=== PATIENT | female | born 1985 | race Caucasian/White ===

== ENCOUNTER 2022-08-09 08:17 | Day surgery (SDC) | payer BC ==
[2022-08-03 14:45] LABS: Specific Gravity 1.013 (1.005-1.030); Urine Bilirubin NEGATIVE (Negative); Urine Blood Negative (Negative); Urine Clarity Clear (Clear); Urine Color Light-Yellow (Yellow); Urine Glucose NEGATIVE (Negative); Urine Protein NEGATIVE (Negative); Urine Urobilinogen Normal (Normal)
[2022-08-08 08:10] LABS: Absolute Lymphocytes (CBC) 2.2 K/uL (0.7-4.9); Hematocrit 33.7 % (36.0-45.0); Lymphocytes % 31.4 % (15.3-44.8); MCV 90.9 fL (80-100); MPV 7.1 fL (7.6-11.3); RBC Red Blood Cell Count 3.71 M/uL (3.86-4.86)
[2022-08-09] MEDS ORDERED: Ringers Lactate 1,000 ML IV ONE ×4 (09:18→16:21)
[2022-08-09] MEDS ORDERED: SCOPOLAMINE HYDROBROMIDE PATCH TD ONE (09:18)
[2022-08-09] MEDS ORDERED: MIDAZOLAM HCL 2 MG/2 ML INJ ONE (09:27)
[2022-08-09] MEDS ORDERED: FENTANYL CITR 100 MCG/2 ML ONE ×3 (09:28→13:30)
[2022-08-09] MEDS ORDERED: ROCURONIUM 50 MG/5 ML VIAL IV ONE (09:28)
[2022-08-09] MEDS ORDERED: LIDOCAINE 2% MPF 5 ML VIAL ONE (09:28)
[2022-08-09] MEDS ORDERED: propofoL 200 MG/20 ML VIAL IV ONE (09:28)
[2022-08-09] MEDS: CEFAZOLIN SODIUM 2 GM/VIAL ONE ×2 (09:54→10:35)
[2022-08-09] MEDS: BUPIVACAINE 0.25% PF 30 ML VIAL ONE ×2 (09:55→10:50)
[2022-08-09] MEDS ORDERED: KETAMINE HCL 500 MG/5 ML VIAL ONE (09:56)
[2022-08-09] MEDS ORDERED: NS 0.9% VIAL 20 ML ONE (09:56)
[2022-08-09] MEDS ORDERED: dexAMETHasone 10 MG/ML VIAL ONE (09:56)
[2022-08-09] MEDS ORDERED: ONDANSETRON 4 MG/2 ML VIAL ONE ×2 (10:00→14:21)
[2022-08-09] MEDS ORDERED: GLYCOPYRROLATE 0.2 MG/ML SYR ONE (11:33)
[2022-08-09] MEDS ORDERED: KETOROLAC 30 MG/ML INJ ONE (12:56)
[2022-08-09 13:52] VITALS: O2SAT 100
[2022-08-09] MEDS ORDERED: HYDROCODONE/APAP 5/325 MG TAB PO PRN (14:12)
[2022-08-09] MEDS ORDERED: MEPERIDINE HCL 25 MG/ML SYR IM PRN (14:12)
[2022-08-09] MEDS ORDERED: PROMETHAZINE INJ 25 MG/ML AMP IV PRN (14:12)
--- NOTE | 2022-08-09 14:18 | P.BOP ---
Preoperative diagnosis: AUB-A/E, Dysmenorrhea, Dyspareunia Postoperative diagnosis: same, endometriosis, bladder ometal adhesions Primary procedure: TLH BS Endometriosis excision and fulgration, cystoscopy Harness Puller: Zamzam Honeycutt Estimated blood loss: 50 Specimen: uterus tubes endometriosis Findings: omental adhesions-ant abd wall,dense bladder adhesions-lower uterus,ant vg Anesthesia: General Complications: None Fluids & blood products: UO 300, LR 1600 Transferred to: Recovery Room Condition: Good
[2022-08-09] MEDS ORDERED: HYDROCODONE/APAP 5/325 MG TAB ONE (15:06)
[2022-08-09 16:11] VITALS: BP 112/68; TEMP 96.9
--- NOTE | 2022-08-09 19:53 | OP ---
Date of Procedure: 08/09/2022 Surgeon: Christin Parrish MD [employer] Operator: Zamzam De La Rosa. Preoperative Diagnoses: 1.Menorrhagia (AUB-A/P). 2.Dysmenorrhea. 3.Dyspareunia. Postoperative Diagnoses: 1.Menorrhagia (AUB-A/P). 2.Dysmenorrhea. 3.Dyspareunia. 4.Endometriosis. 5.Bladder and omental adhesions from her 3 sections. Procedures Performed: Total laparoscopic hysterectomy, bilateral salpingectomy, endometriosis, excis ion and fulguration, lysis of omental adhesions, and bladder adhesions that took at least 50% of the case. Cystoscopy. Estimated Blood Loss: 50. Specimens: Uterus, tubes, endometriosis. Findings: Omental adhesions to the anterior abdominal wall. Dense bladder adhesions to the lower ut erus and anterior vaginal wall. All these were removed with sharp and blunt dissection as well as ca uterization with bipolar and cutting. On cystoscopy at the end of the procedure, there was jets of urine from both ureteric orifices. The right was slightly slower than the left, but it was good jet of urine. Both ovaries were retained and appeared to be completely unremarkable. The location of endometriosis, 1 implant, and the posterior cul-de-sac right pararectal space. Just on the superficial peritoneum overlying was completely fulgurated on the right posterior broad ligame nt, lateral to the ureter, and anterior. This was also picked up and fulgurated at the end. The End ometriotic implants in the left posterior peritoneum of the broad ligament overlying the uterosacral ligament as well as distal ureter were excised after being from the ureter in the distal pa rt of the pelvis. The bladder adhesions were taken down well and closure was performed with the help of interrupted 0 V icryl sutures x5. Indications: The patient is a 37-year-old female with 3 prior C-sections, tubal ligation as well. S he was evaluated for pain as well as bleeding. No evidence of any atypia or malignancy. No adnexal masses were noted. Discussed all the benefits and risks of the procedure and proceeded with the hyst erectomy today. She was re-consented in the preoperative area, taken back to the OR, placed in supin e fashion on the operating table. After Ancef 2 g were given, general anesthesia was given and she w as placed in a dorsal lithotomy position. Abdomen, vulva, vagina, and perineum were prepped and drap ed in a sterile fashion. Christian was placed to drain the bladder and a medium VCare was introduced int o the place for uterine manipulation and fix. The Christian was attached for retrograde filling to an LR bag emptied 300. A 1 cm supraumbilical incision made with a scalpel using the open laparoscopy technique. Fascia was tagged with 0 Vicryl sutures and peritoneum entered sharply. S-retractors were placed. Jarvis intro duced. After adequate insufflation, site of entry was checked and was unremarkable. The upper abdom inal surfaces, gallbladder unremarkable. The gastric sleeve was visible. Some scar here to the ante rior abdominal wall of the omentum as well as the stomach. The appendix appeared to be unremarkable. There were adhesions of the omentum to the anterior abdominal wall starting at the infraumbilical s car and going down all the way to her scars. There appeared to be a defect in the anterior abdominal wall, where the scar was, where there could be a ventral hernia that was fairly s mall, about 4 cm, but otherwise, no other abnormalities were noted. 5 left lower quadrant ports were placed under direct vision, a 5 right as well, and after taking down the omental adhesions carefully with the help of sharp dissection as well as blunt and taking down them and windows using the LigaSu re, the anterior abdominal wall was inspected. Hemostasis was secured and then the 10 port in the mota prapubic area was placed through the same area. The patient was placed in Trendelenburg. Then I evaluated the pelvic cavity, the bladder adhesions i n the suprapubic area were taken down and then going down to the area between the bladder and the unga monet. The adhesions were taken down sharply first coming down to the anterior vaginal wall here. Att ention was then directed to the left adnexa. The bowel adhesions to the left adnexa were taken down sharply. Then, once the bowel was dropped down, the tube was picked up. Salpingectomy was performed with the LigaSure. Then, window was created for the round ligament both superiorly and inferiorly. Then, this was cauterized and cut with the help of the LigaSure. Utero-ovarian ligament was also ta gianluca down and anteriorly the bladder was dissected on the anterior vaginal wall in the left paravesica l space. The vessels were visualized here, there was endometriosis in the posterior peritoneum, so t his was carefully dissected opening up the peritoneum between the ureter and the implants dissecting the ureter laterally, after identifying the uterine artery. Then the implants were carefully dissect ed away from the ureter to the medial aspect and this was taken down all the way to the uterosacral, creating space between the ureter and the uterosacral. Then the vessels were isolated. However, the bladder was still well adhered, so the space between the anterior vaginal wall and the bladder was d issected, created, and then a bipolar as well as sharp dissection was performed to separate the bladd er from the lower uterine wall as well as the anterior vaginal wall. Once this was done, then the re st of the broad ligament was skeletonized all the way to the cup on the opposite side. Tube was take n down utero-ovarian ligament and round ligament. Then anteriorly, the peritoneum was opened up to c onnect the bladder flap. However, there were dense bladder adhesions to the right lateral part of th e lower uterine segment. The scar was taken down with sharp dissection. Then, there was still furth er scar on the anterior vaginal wall, which had to be taken down carefully with the bipolar LigaSure, carefully not going towards the bladder pillar, where there could be the ureterovesical junction. T hen, once the vessels were isolated anteriorly, the peritoneum taken down posteriorly, all the way to the uterosacral, and the vessels were taken down close to the uterus and then cut. The cardinal lig aments were taken down as well and then on the opposite side, uterine vessels were taken down. The b ladder was connected in the anterior vaginal wall. The bladder was dissected to completely retract i t beyond the cuff and posteriorly the peritoneum all incised on the cup. Then, the cardinal ligament s on the left side were taken and circumferential colpotomy with a monopolar hook blade, and the spec imen pulled up through the vagina. Hemostasis was secured on both ends of the cuff at 9 and 3 o'cloc k positions with the help of a fine tipped bipolar. Once this was done, interrupted 0 Vicryl sutures were placed, 2 simple sutures at both ends for hemostasis as well as closure of the corners. Then t hree [id number] were placed in the center incorporating the uterosacral ligament as well to the vaginal cuff. Thorough irrigation and suction were performed. Good hemostasis. No evidence of bo ctrical, mechanical, or thermal injury to the ureters on either sides. Endometriosis in the right pararectal space in the cul-de-sac was picked up and cauterized with the h elp of the tip of Silvia bipolar and right lateral posterior wall lateral to the ureter. The perito neum was picked up and cauterized with the help of the fine tipped bipolar as well. No other implant s were seen. Thorough irrigation and suction were performed. Gas was desufflated. Ports removed un nixon direct vision. Marcaine was injected at the entry and exit at the fascial level and skin fascia at the umbilicus closed with the help of 0 Vicryl and that was tagged on each side, tied to each othe r. Simple 0 Vicryl stitch on the fascial incision in the midline in the suprapubic area. All skin i ncisions with interrupted chromic sutures. Then down to perform a cystoscopy after removing the vaginal occluder sponge as well as the Christian. B oth ureters had good jets of urine. The left was much more brisk than the right side. The entire bl adder was visualized and was completely unremarkable. Since there was a good stream of urine from th e right UO, I left it as appropriate for flow. Bladder was then drained. The patient was recovered. Estimated Blood Loss: 50. Urine Output: 300. Disposition: She was taken to the PACU in stable condition and her parents who were waiting outside were debriefed about her procedure. She has a 1-week followup. KRISTOFER/KALIA Voice ID: [id number] Report ID: [id number]
[2022-08-10] MEDS ORDERED: TOPIRAMATE 25 MG TAB PO SCH (09:00)
[2022-08-10] MEDS ORDERED: PLECANATIDE 3 MG PO SCH (09:00)
[2022-08-10] MEDS ORDERED: THIAMINE HCL 100 MG TABLET PO SCH (09:00)
[2022-08-10] MEDS ORDERED: FERROUS GLUCONATE 240 MG PO SCH (09:00)
== END 2022-08-09 17:48 | disposition home or self-care (01) ==
LOC: OR 08:17
PROVIDERS: ATTEND Obstetrics & Gynecology
PROC: 0UT74ZZ Resection of Bilateral Fallopian Tubes, Percutaneous Endoscopic Approach (ICD-10-PCS; 2022-08-09)
PROC: 0UBF4ZZ Excision of Cul-de-sac, Percutaneous Endoscopic Approach (ICD-10-PCS; 2022-08-09)
PROC: 0DNU4ZZ Release Omentum, Percutaneous Endoscopic Approach (ICD-10-PCS; 2022-08-09)
PROC: 0TNB4ZZ Release Bladder, Percutaneous Endoscopic Approach (ICD-10-PCS; 2022-08-09)
PROC: 0UT94ZZ Resection of Uterus, Percutaneous Endoscopic Approach (ICD-10-PCS; principal; 2022-08-09 09:30)
DX: N80.3C3 Endometriosis of bilateral uterosacral ligament(s), unspecified depth (principal); N92.1 Excessive and frequent menstruation with irregular cycle; N94.6 Dysmenorrhea, unspecified; N94.12 Deep dyspareunia; D50.0 Iron deficiency anemia secondary to blood loss (chronic); K66.0 Peritoneal adhesions (postprocedural) (postinfection); N32.89 Other specified disorders of bladder; N88.8 Other specified noninflammatory disorders of cervix uteri
CPT/HCPCS: 85025; 36415; 86900; 86850; 81025; 86901; 88307; 81003; 58571; 58662; 49329; 53899; J2704; J2001; J2250; J3010 ×3; J1100; A4216; J7120 ×4; J2405 ×2